=== PATIENT | male | born 1995 | race Caucasian/White ===

== ENCOUNTER 2019-04-02 22:34 | Emergency (ER) | payer SELFPAY ==
--- NOTE | 2019-04-02 22:43 | ED Physician Documentation ---
Asthma - HISTORIAN Historian: patient - HPI Stated Complaint: "asthma attack since noon" Chief Complaint: Dyspnea Onset: hours (6) Duration: continues in ED Initiating Event: other (he is not getting "the right inhalers" per his mom ) Associated Symptoms:: trouble breathing, shortness of breath. denies: fever, sweating, hurts to breath, productive cough, bloody sputum, chest discomfort, chest pain, chest pressure, chest tightness, constant, chills, right, lower, pressure, tightness, intermittent Current Asthma Therapy: inhaled nebulizer, inhaled MDI, albuterol inhaler Further Comments: yes (He and mom at bedside state the started to have an asthma attack around noon. He and she deny any PRN treatments " I am out of my inhaler" - Mom states he is "on the wrong meds they are not strong enough" He reports he does not have a PCP but he and mom feel he is not on the correct asthma regemin and she is concerned he might have sleep apnea although he states he does not know this to be true. No fever . No expsosures that are new. NO other compaints) - ROS CONST: no problems CVS: denies: heart racing, palpitations GI/: none MS/SKIN/LYMPH: denies: rash NEURO/PSYCH: denies: headache - PAST HX Asthma: occasional attacks Lung Disease: asthma Immunizations: UTD Allergies/Adverse Reactions: Allergies Allergy/AdvReac Type Severity Reaction Status Date / Time No Known Allergies Allergy Verified 04/02/19 22:46 Home Medications: Ambulatory Orders Medication Instructions Recorded Albuterol Sulfate [Proair HFA] 1 inh IH Q4 PRN #1 [email or web address] 01/18/15 Albuterol Sulfate [Ventolin HFN] 1 puff PO PRN PRN 04/02/19 - SOCIAL HX Smoking History: non-smoker Alcohol Use: none Drug Use: none - FAMILY HX Family History: asthma, CAD. denies: emphysema - VITAL SIGNS Vital Signs: Vital Signs Temp Pulse Resp BP Pulse Ox 125/78 01/18/15 15:05 - REVIEWED ASSESSMENTS Nursing Assessment Reviewed: Yes Vitals Reviewed: Yes ED Results Lab/Radiology - Radiology Radiology Impressions: Chest, one view History: Shortness of breath. Scratch that Findings: Examination is limited by patient's large body habitus. The heart size is normal. The lungs are clear. No pleural effusion or pneumothorax is present. The osseous structures are intact. Impression: 1. No acute pulmonary disease. Electronically signed on Apr 02, 2019 11:14:52 PM CDT by: Diogenes Ortiz - Orders Orders: ED Orders Category Date Time Status IV Started NOW Care 04/02/19 22:38 Ordered Ipratropium/Albuterol Sulfate [Duoneb] Med 04/02/19 22:33 Discontinued 3 ml NEB .STK-MED ONE Ipratropium/Albuterol Sulfate [Duoneb] Med 04/02/19 22:38 Once 3 ml NEB NOW ONE methylPREDNISolone SOD SUCC [SOLU-Medrol] Med 04/02/19 22:39 Once 125 mg IVP NOW ONE Asthma Physical Exam - EXAM General Appearance: alert, mild distress EENT: eye inspection normal, ENT inspection normal, pharynx normal, no signs of dehydration Respiratory: breath sounds nml, speaks full sentences, prolonged expirations CVS: reg rate & rhythm, heart sounds normal Abdomen: non-tender Skin: color nml, no rash Extremities: non-tender, normal range of motion Neuro/Psych: oriented x3 Discharge Clincal Impression: Asthma attack Qualifiers: Asthma severity: mild Asthma persistence: intermittent Qualified Code(s): J45.21 - Mild intermittent asthma with (acute) exacerbation Referrals: Primary Doctor,No [Primary Care Provider] - 2 Days Comments: 1. Continue meds 2. Follow up with PCP tomorrow 3. Prednisone 20 mg take 1 by mouth daily x 5 days 4. Albuterol solution for neb use 1 vial every 4 hours as needed for cough 5. Return to ER for any increasing concerns Condition: Stable Disposition: 01 HOME, SELF-CARE Decision to Admit: NO Date of Decison to Admit: 04/02/19 Decision Time: 23:25
[2019-04-02 22:51] VITALS: BP 148/93
[2019-04-02] MEDS: IPRATROPIUM/ALBUTEROL SULFATE 3 ML AMPUL.NEB NEB ONE ×2 (23:06→23:34)
[2019-04-02] MEDS: methylPREDNISolone SOD SUCC 125 MG/2 ML VIAL IVP ONE (23:35)
--- NOTE | 2019-04-03 09:50 | Diagnostic Imaging Report ---
SARAH WOOD [facility] [address] [facility] [address] [place], [place]. [address] Report Submission Date: Apr 02, 2019 11:14:52 PM CDT Patient Study Name: MILA MILLER Date: Apr 02, 2019 10:52:06 PM CDT Modality Type: DX Gender: M Description: CHEST 1VIEW : 89 Institution: [facility] Physician: SARAH WOOD Chest, one view History: Shortness of breath. Scratch that Findings: Examination is limited by patient's large body habitus. The heart size is normal. The lungs are clear. No pleural effusion or pneumothorax is present. The osseous structures are intact. Impression: 1. No acute pulmonary disease. Electronically signed on Apr 02, 2019 11:14:52 PM CDT by: Diogenes KU
== END 2019-04-02 23:32 | disposition home or self-care (01) ==
LOC: ED 22:34
DX: J45.21 Mild intermittent asthma with (acute) exacerbation (principal)
CPT/HCPCS: 71045; 94640; 96374; 99284; J2930; S1016